=== PATIENT | male | born 1970 | race Caucasian/White ===

== ENCOUNTER 2023-12-18 05:40 | Day surgery (SDC) | payer OTHER ==
[2023-12-18] MEDS ORDERED: Simethicone 40 MG/0.6 ML Drop 30 ML BOT ONE (06:55)
[2023-12-18] MEDS ORDERED: Ketamine In 0.9 % NaCl 50 MG/5 ML SYRINGE ONE (07:02)
[2023-12-18] MEDS ORDERED: PROPOFOL 40 ML ONE (07:02)
[2023-12-18] MEDS ORDERED: Lidocaine 1% PF 5 ML VIAL ONE (07:04)
[2023-12-18] MEDS ORDERED: Albuterol 1.25 MG (3 mL) NEB ONE (07:39)
[2023-12-18] MEDS ORDERED: fentaNYL 50 mcg/mL 1 mL Vial ONE (08:11)
== END 2023-12-18 09:10 | disposition home or self-care (01) ==
LOC: SDC 05:40
PROVIDERS: ATTEND Internal Medicine
PROC: 0DBP8ZZ Excision of Rectum, Via Natural or Artificial Opening Endoscopic (ICD-10-PCS; principal; 2023-12-18)
DX: Z12.11 Encounter for screening for malignant neoplasm of colon (principal); D12.8 Benign neoplasm of rectum; K62.89 Other specified diseases of anus and rectum
CPT/HCPCS: 88305; J2704; J3010; J3490